=== PATIENT | male | born 1955 | race Caucasian/White ===

== ENCOUNTER 2019-10-13 10:10 | Inpatient (IN) | payer MEDICARE ==
[~2019-10-13] VITALS: Ht 177.8 cm; Wt 89.0 kg
[2019-10-13 11:01] LABS: Basophils # (auto) 0 10 ^3/uL (0-0.2); Basophils % (auto) 0.9 % (0.0-2.0); Eosinophils # (auto) 0.1 10 ^3/uL (0-0.8); Eosinophils % (auto) 1.9 % (0.0-7.0); Lymphocytes # (auto) 1.4 10 ^3/uL (0.4-5.4); Lymphocytes % (auto) 36.2 % (10.0-50.0); Mean Corpuscular Hgb Conc. 34.2 g/dL (32.0-36.0); Mean Corpuscular Volume 99.6 fL (80.0-100.0); Monocytes # (auto) 0.3 10 ^3/uL (0-1.3); Monocytes % (auto) 7.6 % (0.0-12.0); Neutrophils # (auto) 2.1 10 ^3/uL (1.6-8.6); Neutrophils % (auto) 53.4 % (37.0-80.0); Platelet Count (auto) 142 10^3/uL (140-450); Red Blood Cells 4.42 10^6/uL (4.5-5.90); Red Cell Distribution Width 13.3 % (11.8-14.3)
[2019-10-13 11:15] LABS: INR 1.03 (0.9-1.15); Partial Thromboplastin Time 26.8 sec (23.64-32.05)
[2019-10-13 11:20] LABS: Urine Bacteria NONE SEEN /hpf (None Seen); Urine Blood Negative /uL (Negative); Urine Mucus FEW (None Seen); Urine Specific Gravity 1.023 (1.001-1.035); Urine WBC 1 /hpf (0 - 3)
[2019-10-13 11:20] LABS: Albumin 3.6 g/dL (3.4-5.0); Anion Gap 3 (5-15); Blood Urea Nitrogen 22 mg/dL (7-18); Calcium 8.4 mg/dL (8.5-10.1); Carbon Dioxide 24 mmol/L (21-32); Chloride 113 mmol/L (98-107); Glucose 111 mg/dL (74-106); Potassium 3.9 mmol/L (3.5-5.1); Sodium 140 mmol/L (136-145)
[2019-10-13 11:26] LABS: Alanine Aminotransferase 45 U/L (16-61); Alkaline Phosphatase 50 U/L (45-117); Aspartate Aminotransferase 20 U/L (15-37); BUN/Creatinine Ratio 23.7; Bilirubin, Total 0.8 mg/dL (0.2-1.0); GFR African American 105 mL/min; GFR Non-African American 86 mL/min; Total Protein 7.1 g/dL (6.4-8.2)
[2019-10-13] MEDS ORDERED: NITROGLYCERIN 0.4 MG SL TAB SL PRN ×2 (13:30)
[2019-10-13] MEDS ORDERED: ONDANSETRON HCL 4 MG/2 ML VIAL IV PRN ×2 (13:30)
[2019-10-13] MEDS ORDERED: HYDROcodone-ACET 5/325MG TAB PO PRN (13:30)
[2019-10-13] MEDS ORDERED: DOCUSATE SOD 100 MG CAP PO PRN (13:30)
[2019-10-13] MEDS ORDERED: LORazepam 0.5 MG TAB PO PRN ×2 (13:30)
[2019-10-13] MEDS ORDERED: MORPHINE SULF INJ 2 MG/ML SYRINGE 1ML IV PRN ×2 (13:30)
[2019-10-13] MEDS ORDERED: ALUM & MAG HYDROX-SIMETH LIQ(MAALOX) 30 ML PO PRN (13:30)
[2019-10-13] MEDS ORDERED: cefTRIAXone 1GM/50ML D5W 50 ML IV ONE (13:45)
[2019-10-13] MEDS ORDERED: FUROSEMIDE 20 MG/2 ML VIAL IV ONE (13:45)
[2019-10-13] MEDS ORDERED: CALCIUM W/VIT D (600MG/400IU) TAB PO ONE (13:45)
[2019-10-13] MEDS ORDERED: hydrALAZINE HCL 20 MG/ML VL IV PRN ×2 (13:45→20:30)
[2019-10-13] MEDS: metroNIDAZOLE 500MG/100ML 100 ML IV SCH ×2 (14:00→21:35)
[2019-10-13] MEDS ORDERED: AMLO10TA13 PO (14:42)
[2019-10-13] MEDS ORDERED: ATO40T PO (14:42)
[2019-10-13] MEDS ORDERED: CYAN100088 PO (14:42)
[2019-10-13] MEDS ORDERED: ASPI-498 PO (14:42)
[2019-10-13] MEDS ORDERED: CARV6.2551 PO (14:42)
--- NOTE | 2019-10-13 15:07 | NUR ---
SWALLOW EVALUATED IN EMERGENCY DEPT. PATIENT HAS NATURAL TEETH UPPER AND LOWER. PATIENT HAS SEVERE WORD FINDING ISSUES DUE TO HX OF CVA. ABLE TO FOLLOW COMMANDS. PATIENT ABLE TO TOLERATE MECHANICAL SOFT TRIAL WITH THIN LIQUIDS WITH NO OVERT SIGNS OR SYMPTOMS OF ASPIRATION. NURSING NOTIFIED.
--- NOTE | 2019-10-13 18:15 | NUR ---
Report Received Report received from GLASSINE MACHINE TENDER.
[2019-10-13] MEDS: FUROSEMIDE 20 MG/2 ML VIAL IV SCH (18:26)
[2019-10-13] MEDS: CALCIUM W/VIT D (600MG/400IU) TAB PO SCH (18:27)
--- NOTE | 2019-10-13 18:35 | NUR ---
Patient Arrived Patient arrived to unit. Patient is AOx2, respirations even and unlabored on room air. No signs of distress at this time, safety precautions in place, with bed alarm done.
--- NOTE | 2019-10-13 19:15 | NUR ---
Closing Note Report given to CYNTHIA KATHLEEN.
--- NOTE | 2019-10-13 19:46 | NUR ---
Opening Shift Note Received report and assumed care of patient. Patient is awake and alert. Patient has expressive aphasia. No signs or symptoms of distress noted, patient currently denies pain. Instructed patient on plan of care and to call for assistance as needed. Will continue to monitor.
[2019-10-13] MEDS: SODIUM CHLORIDE 0.9% 1,000 ML IV SCH (20:23)
[2019-10-13] MEDS ORDERED: LORazepam 2MG/ML-1ML VIAL IV PRN (20:30)
[2019-10-13] MEDS ORDERED: ACETAMINOPHEN 325 MG TAB PO PRN (20:30)
[2019-10-13 21:06] LABS: Urine Bacteria NONE SEEN /hpf (None Seen); Urine Blood Negative /uL (Negative); Urine Mucus FEW (None Seen); Urine Specific Gravity 1.005 (1.001-1.035); Urine WBC <1 /hpf (0 - 3)
[2019-10-13 21:20] LABS: Cholesterol 111 mg/dL (< 200)
[2019-10-13 21:21] LABS: Amphetamine Screen, Urine NEGATIVE (NEGATIVE); Barbiturate Scree,Urine NEGATIVE (NEGATIVE); Benzodiazephine Screen, Urine NEGATIVE (NEGATIVE); Cannabinoid Screen, Urine NEGATIVE (NEGATIVE); Cocaine Screen, Urine NEGATIVE (NEGATIVE); Opiate Scree,Urine NEGATIVE (NEGATIVE); Phencyclidine Screen, Urine NEGATIVE (NEGATIVE)
[2019-10-13 21:24] LABS: HDL Cholesterol 45 mg/dL (40-59); LDL Cholesterol 60 mg/dL (< 100); Triglycerides 91 mg/dL (< 150)
[2019-10-13] MEDS: ATORVASTATIN 20 MG TAB PO SCH (21:36)
[2019-10-13 23:55] VITALS: BP 114/64
[2019-10-14 05:34] VITALS: BP 103/71
[2019-10-14] MEDS: metroNIDAZOLE 500MG/100ML 100 ML IV SCH (06:00)
[2019-10-14] MEDS: SODIUM CHLORIDE 0.9% 1,000 ML IV SCH (06:00)
[2019-10-14] MEDS: FUROSEMIDE 20 MG/2 ML VIAL IV SCH ×2 (06:01→17:35)
[2019-10-14 06:27] LABS: Basophils # (auto) 0 10 ^3/uL (0-0.2); Basophils % (auto) 0.4 % (0.0-2.0); Eosinophils # (auto) 0.1 10 ^3/uL (0-0.8); Eosinophils % (auto) 1.9 % (0.0-7.0); Hematocrit 41.6 % (41.0-53.0); Hemoglobin 14.7 g/dL (13.5-17.5); Lymphocytes # (auto) 1.8 10 ^3/uL (0.4-5.4); Lymphocytes % (auto) 35.3 % (10.0-50.0); Mean Corpuscular Hgb Conc. 35.2 g/dL (32.0-36.0); Mean Corpuscular Volume 99.4 fL (80.0-100.0); Monocytes # (auto) 0.4 10 ^3/uL (0-1.3); Monocytes % (auto) 8.3 % (0.0-12.0); Neutrophils # (auto) 2.7 10 ^3/uL (1.6-8.6); Neutrophils % (auto) 54.1 % (37.0-80.0); Nucleated Red Blood Cells % 0.3 %; Platelet Count (auto) 135 10^3/uL (140-450); Red Blood Cells 4.18 10^6/uL (4.5-5.90); Red Cell Distribution Width 13.2 % (11.8-14.3); White Blood Cell 5.1 10^3/uL (4.4-10.8)
[2019-10-14 06:41] LABS: INR 1.01 (0.9-1.15); Partial Thromboplastin Time 27.6 sec (23.64-32.05)
[2019-10-14 06:42] LABS: Potassium 3.8 mmol/L (3.5-5.1)
[2019-10-14 06:56] LABS: Albumin 3.4 g/dL (3.4-5.0); BUN/Creatinine Ratio 22.8; Bilirubin, Total 0.6 mg/dL (0.2-1.0); Calcium 8.4 mg/dL (8.5-10.1); Magnesium 2.4 mg/dL (1.6-2.6); Phosphorus 3.5 mg/dL (2.5-4.90); Total Protein 6.6 g/dL (6.4-8.2)
--- NOTE | 2019-10-14 07:30 | NUR ---
Opening Shift Note Assumed patient care from NOC RN. Patient currently sitting up in bed, no signs of distress at this time. AOx3, bed alarm on for safety. Patient encouraged to call when ambulating to restroom, patient verbalized understanding and demonstrated understanding of call light. Respirations even and unlabored, will continue to monitor.
[2019-10-14 09:00] VITALS: BP 129/84
[2019-10-14] MEDS ORDERED: cefTRIAXone 1GM/50ML D5W 50 ML IV SCH (09:00)
[2019-10-14] MEDS: CLOPIDOGREL BISULFATE 75 MG TAB PO SCH (09:18)
[2019-10-14] MEDS: LISINOPRIL 10 MG TAB PO SCH (09:18)
[2019-10-14] MEDS: ASPirin 81 mg TAB PO SCH (09:19)
[2019-10-14] MEDS: ENOXAPARIN SOD 30 MG/0.3 ML SYRINGE SC SCH (09:19)
[2019-10-14] MEDS: CALCIUM W/VIT D (600MG/400IU) TAB PO SCH ×2 (09:19→17:35)
[2019-10-14] MEDS ORDERED: DOCUSATE SOD 100 MG CAP PO SCH (10:00)
[2019-10-14 12:41] VITALS: BP 127/81
[2019-10-14] MEDS: D5W/SOD CHL 0.45%/KCL 20MEQ 1,000 ML IV SCH (14:55)
[2019-10-14 17:00] VITALS: BP 111/76
--- NOTE | 2019-10-14 17:20 | NUR ---
Orthostatic Vital Signs Supine: 115/71, HR 45 SpO2 98% Standin/75, HR 51, SpO2 98% Standin/84, HR 55, SpO2 99%. Patient tolerated well, no signs of distress at this time. Respirations even and unlabored, denies dizziness at this time.
--- NOTE | 2019-10-14 19:00 | NUR ---
Opening Shift Note Assumed care of patient, awake and alert sitting at the chair. No S/S of distress/SOB or pain. Instructed on POC and to call for assist PRN, will continue to monitor for changes Q1hr and PRN.Seen by Dr. Ferguson.
[2019-10-14] MEDS: ATORVASTATIN 20 MG TAB PO SCH (21:31)
[2019-10-14 22:00] VITALS: BP 106/68
[2019-10-15 05:00] VITALS: BP_SYST 131; BP_SYST 134; BP_SYST 137; BP_DIAS 73; BP_DIAS 74; BP_DIAS 83
[2019-10-15] MEDS: FUROSEMIDE 20 MG/2 ML VIAL IV SCH (05:07)
[2019-10-15] MEDS: D5W/SOD CHL 0.45%/KCL 20MEQ 1,000 ML IV SCH (05:25)
--- NOTE | 2019-10-15 07:32 | NUR ---
Care report given to Yu Grajeda, patient is resting no distress.
[2019-10-15] MEDS: CALCIUM W/VIT D (600MG/400IU) TAB PO SCH (07:53)
--- NOTE | 2019-10-15 07:55 | NUR ---
Opening Note Assumed pt care from NOC RN. Pt is a/ox4 with no s/s of distress or SOB. Pt is currently sitting upright in bed with no complaints at this time. Assessed direct response consultant; strong bilaterally on upper extremities, no deficits noted. Discussed POC with pt; pt verbalized understanding. Safety measures maintained with call light within reach, bed in lowest position and side rails up. Will continue to monitor.
[2019-10-15 08:46] VITALS: BP_SYST 120; BP_SYST 122; BP_DIAS 74; BP_DIAS 81
[2019-10-15 08:47] VITALS: BP 118/81
[2019-10-15] MEDS: CLOPIDOGREL BISULFATE 75 MG TAB PO SCH (08:52)
[2019-10-15] MEDS: ASPirin 81 mg TAB PO SCH (08:52)
[2019-10-15] MEDS: LISINOPRIL 10 MG TAB PO SCH (08:53)
[2019-10-15] MEDS: ENOXAPARIN SOD 30 MG/0.3 ML SYRINGE SC SCH (08:54)
[2019-10-15] MEDS ORDERED: CLOP75TA28 PO (09:27)
--- NOTE | 2019-10-15 09:28 | NUR ---
Ambulation Pt is able to ambulate around the nurses station numerous times without difficulty. Will continue to monitor.
[2019-10-15] MEDS ORDERED: AGG25C PO (10:10)
--- NOTE | 2019-10-15 10:29 | NUR ---
Dr Temple at Bedside MD to see pt. Plans to d/c pt home today. MD stated that she would update pt's son. Will implement and continue to monitor.
[2019-10-15 10:43] VITALS: BP 122/74
[2019-10-15 12:35] VITALS: BP_SYST 121; BP_SYST 124; BP_DIAS 74; BP_DIAS 82
[2019-10-15 12:36] VITALS: BP 121/78
--- NOTE | 2019-10-15 12:42 | NUR ---
Prescription [facility] is unable to fulfill the Rx AGGRENOX today; but will have the RX tomorrow. Will inform patient and pt's family of need to pick remover tomorrow.
--- NOTE | 2019-10-15 13:01 | NUR ---
IV and Tele 75 D/C'ed IV to pt's R FA removed. Catheter was removed fully intact. Site is asymptomatic. Pressure was applied to site for 3 minutes with gauze and then wrapped in coban. Pt instructed to keep dressing on for 30 minutes Tele 75 D/C'ed and sent back to ICU Staff made aware.
--- NOTE | 2019-10-15 14:01 | NUR ---
Pt D/C'ed off Unit Pt d/c'ed off unit via wheelchair. Pt is a/ox4 with no s/s of distress or SOB. Pt took all belongings, education material and all questions were answered. Pt aware of need to flower buncher or picker prescription. IV and tele box were d/c'ed prior to d/c.
[2019-10-15] MEDS ORDERED: ASPIRIN-DIPYRIDAMOLE (25/200MG) CAPSULE PO SCH (22:00)
== END 2019-10-15 14:03 | disposition home or self-care (01) | DRG 66 ==
LOC: ER 10:10 → TELE 10:11 → TELE-WESTW 18:35
PROVIDERS: ADMIT Hospitalist; ATTEND Internal Medicine
DX: I63.9 Cerebral infarction, unspecified (principal); I10 Essential (primary) hypertension; R47.02 Dysphasia; E83.51 Hypocalcemia; F01.50 Vascular dementia, unspecified severity, without behavioral disturbance, psychotic disturbance, mood disturbance, and anxiety; R73.9 Hyperglycemia, unspecified; E86.0 Dehydration; I25.10 Atherosclerotic heart disease of native coronary artery without angina pectoris; I25.2 Old myocardial infarction; Z79.02 Long term (current) use of antithrombotics/antiplatelets; Z79.82 Long term (current) use of aspirin; Z79.899 Other long term (current) drug therapy; Z82.49 Family history of ischemic heart disease and other diseases of the circulatory system; Z95.5 Presence of coronary angioplasty implant and graft; I67.2 Cerebral atherosclerosis; I69.311 Memory deficit following cerebral infarction; I69.320 Aphasia following cerebral infarction
CPT/HCPCS: 36415; 70450; 70545; 70551; 71045; 80053; 80061; 80307; 81001; 83036; 83735; 84100; 84443; 84484; 85025; 85610; 85730; 87040; 87086; 87205; 92610; 93005; 93306; 93886; 97163; G0378; J0696; J3490

== ENCOUNTER 2020-07-30 08:09 | Inpatient (IN) | payer MEDICARE, OTHER ==
[~2020-07-30] VITALS: Ht 177.8 cm; Wt 101.8 kg
[~2020-07-30 08:09] MED LIST: AGG25C PO; AMLO-496 PO; ATO40T PO; CARV6.2551 PO; CYAN100088 PO
[2020-07-30] MEDS ORDERED: SODIUM CHLORIDE 0.9% 1,000 ML IV ONE (08:30)
[2020-07-30] MEDS ORDERED: DOCUSATE SOD 100 MG CAP PO ONE (08:30)
[2020-07-30] MEDS ORDERED: MORPHINE SULF INJ 2 MG/ML SYRINGE 1ML ONE (08:45)
[2020-07-30] MEDS ORDERED: ONDANSETRON HCL 4 MG/2 ML VIAL ONE (08:45)
[2020-07-30 08:49] LABS: Anion Gap 9 (5-15); Blood Urea Nitrogen 22 mg/dL (7-18); Calcium 8.9 mg/dL (8.5-10.1); Carbon Dioxide 22 mmol/L (21-32); Chloride 108 mmol/L (98-107); Glucose 136 mg/dL (74-106); Sodium 139 mmol/L (136-145)
[2020-07-30 08:50] LABS: Basophils # (auto) 0 10 ^3/uL (0-0.2); Basophils % (auto) 0.2 % (0.0-2.0); Eosinophils # (auto) 0 10 ^3/uL (0-0.8); Lymphocytes # (auto) 0.8 10 ^3/uL (0.4-5.4); Monocytes # (auto) 0.5 10 ^3/uL (0-1.3); Neutrophils # (auto) 7.5 10 ^3/uL (1.6-8.6); White Blood Cell 8.8 10^3/uL (4.4-10.8)
[2020-07-30 08:51] LABS: Hematocrit 46.3 % (41.0-53.0); Hemoglobin 16.2 g/dL (13.5-17.5); Lymphocytes % (auto) 9.3 % (10.0-50.0); Mean Corpuscular Hemoglobin 35.4 pg (28.0-32.0); Monocytes % (auto) 5.3 % (0.0-12.0); Neutrophils % (auto) 85.2 % (37.0-80.0); Platelet Count (auto) 127 10^3/uL (140-450); Red Blood Cells 4.59 10^6/uL (4.5-5.90); Red Cell Distribution Width 12.7 % (11.8-14.3)
[2020-07-30 08:55] LABS: Alanine Aminotransferase 43 U/L (16-61); Alkaline Phosphatase 59 U/L (45-117); Aspartate Aminotransferase 22 U/L (15-37); BUN/Creatinine Ratio 14.1; Bilirubin, Total 0.8 mg/dL (0.2-1.0); GFR African American 57 mL/min; GFR Non-African American 47 mL/min; Total Protein 7.4 g/dL (6.4-8.2)
[2020-07-30] MEDS ORDERED: ONDANSETRON HCL 4 MG/2 ML VIAL IV ONE (09:00)
[2020-07-30] MEDS ORDERED: MORPHINE SULF INJ 2 MG/ML SYRINGE 1ML IV ONE (09:00)
[2020-07-30] MEDS ORDERED: cefTRIAXone 1GM/50ML D5W 50 ML IV ONE ×2 (09:15→09:45)
[2020-07-30] MEDS ORDERED: KETOROLAC TROMETH 30 MG/ML 1ML VIAL IV ONE (09:15)
[2020-07-30] MEDS ORDERED: TAMSULOSIN HYDROCHLORIDE 0.4 MG CAP PO ONE (09:15)
[2020-07-30] MEDS ORDERED: MORPHINE SULF INJ 2 MG/ML SYRINGE 1ML IV PRN (09:45)
[2020-07-30] MEDS ORDERED: ACETAMINOPHEN 500 MG TAB PO PRN (09:45)
[2020-07-30] MEDS ORDERED: NITROGLYCERIN 0.4 MG SL TAB SL PRN (09:45)
[2020-07-30] MEDS ORDERED: PROMETHAZINE HCL 25 MG/ML 1ML IV PRN (09:45)
[2020-07-30] MEDS: SODIUM CHLORIDE 0.9% 1,000 ML IV SCH ×2 (09:47→19:45)
[2020-07-30 10:04] LABS: Amylase 65 U/L (25-115); Lipase 91 U/L (73-393)
[2020-07-30] MEDS: FAMOTIDINE 20 MG TAB PO SCH (10:20)
[2020-07-30 10:31] LABS: Urine Bacteria NONE SEEN /hpf (None Seen); Urine Blood Negative /uL (Negative); Urine Specific Gravity 1.012 (1.001-1.035); Urine WBC <1 /hpf (0 - 3)
[2020-07-30 13:00] VITALS: BP 124/78
[2020-07-30] MEDS ORDERED: MANNITOL FTV 25% 12.5 GM/50 ML 50 ML IV ONE (13:30)
[2020-07-30 17:00] VITALS: BP 138/79
[2020-07-30] MEDS: TAMSULOSIN HYDROCHLORIDE 0.4 MG CAP PO SCH (17:17)
[2020-07-30] MEDS: traMADol HCL 50 MG TAB PO PRN (17:17)
[2020-07-30] MEDS ORDERED: POLY33504 PO (17:19)
[2020-07-30 23:14] VITALS: BP 95/61
[2020-07-31] MEDS: SODIUM CHLORIDE 0.9% 1,000 ML IV SCH ×3 (04:35→16:40)
[2020-07-31 05:00] VITALS: BP 118/64
[2020-07-31 08:00] VITALS: BP_SYST 110; BP_SYST 130; BP_DIAS 26; BP_DIAS 71
[2020-07-31 09:05] VITALS: BP 130/76
[2020-07-31] MEDS: cefTRIAXone 1GM/50ML D5W 50 ML IV SCH (10:25)
[2020-07-31] MEDS: FAMOTIDINE 20 MG TAB PO SCH (10:26)
[2020-07-31] MEDS: traMADol HCL 50 MG TAB PO PRN ×2 (10:26→16:38)
[2020-07-31] MEDS: LACTULOSE 20Gm/30ML SOLN PO PRN (10:27)
[2020-07-31] MEDS: MORPHINE SULF INJ 2 MG/ML SYRINGE 1ML IV PRN (12:39)
[2020-07-31 13:00] VITALS: BP 137/83
[2020-07-31 13:56] LABS: Basophils # (auto) 0 10 ^3/uL (0-0.2); Eosinophils # (auto) 0 10 ^3/uL (0-0.8); Eosinophils % (auto) 0.1 % (0.0-7.0)
[2020-07-31 13:57] LABS: Basophils % (auto) 0.1 % (0.0-2.0); Hemoglobin 14.5 g/dL (13.5-17.5); Lymphocytes # (auto) 0.7 10 ^3/uL (0.4-5.4); Lymphocytes % (auto) 8.5 % (10.0-50.0); Mean Corpuscular Hemoglobin 34.9 pg (28.0-32.0); Mean Corpuscular Hgb Conc. 34.6 g/dL (32.0-36.0); Mean Corpuscular Volume 101.1 fL (80.0-100.0); Monocytes # (auto) 0.5 10 ^3/uL (0-1.3); Monocytes % (auto) 6.3 % (0.0-12.0); Neutrophils # (auto) 7.4 10 ^3/uL (1.6-8.6); Platelet Count (auto) 106 10^3/uL (140-450); Red Blood Cells 4.16 10^6/uL (4.5-5.90); Red Cell Distribution Width 12.9 % (11.8-14.3); White Blood Cell 8.7 10^3/uL (4.4-10.8)
[2020-07-31 14:14] LABS: BUN/Creatinine Ratio 13.3; Potassium 3.8 mmol/L (3.5-5.1)
[2020-07-31] MEDS ORDERED: SODIUM CHLORIDE 0.9% 1,000 ML IV ONE (15:45)
[2020-07-31] MEDS: TAMSULOSIN HYDROCHLORIDE 0.4 MG CAP PO SCH (17:07)
[2020-07-31 17:18] VITALS: BP 158/88
[2020-07-31 22:00] VITALS: BP 130/76
[2020-07-31] MEDS: ASPIRIN-DIPYRIDAMOLE (25/200MG) CAPSULE PO SCH (22:20)
[2020-07-31] MEDS: CARVEDILOL 3.125 MG TAB PO SCH (22:21)
[2020-07-31] MEDS: TEMAZEPAM 15 MG CAP PO PRN (22:22)
[2020-08-01] MEDS: SODIUM CHLORIDE 0.9% 1,000 ML IV SCH ×4 (00:17→23:52)
[2020-08-01] MEDS: traMADol HCL 50 MG TAB PO PRN ×3 (02:49→14:31)
[2020-08-01 05:00] VITALS: BP 135/83
[2020-08-01] MEDS: MORPHINE SULF INJ 2 MG/ML SYRINGE 1ML IV PRN ×4 (07:04→21:37)
[2020-08-01 08:17] LABS: Calcium 7.6 mg/dL (8.5-10.1); Potassium 3.6 mmol/L (3.5-5.1)
[2020-08-01 08:21] LABS: BUN/Creatinine Ratio 14.4
[2020-08-01 09:11] VITALS: BP 138/79
[2020-08-01] MEDS: POLYETHYLENE GLYCOL 17 GM PWDR PO SCH (09:19)
[2020-08-01] MEDS: cefTRIAXone 1GM/50ML D5W 50 ML IV SCH (09:19)
[2020-08-01] MEDS: ASPIRIN-DIPYRIDAMOLE (25/200MG) CAPSULE PO SCH ×2 (09:19→21:35)
[2020-08-01] MEDS: ATORVASTATIN 20 MG TAB PO SCH (09:20)
[2020-08-01] MEDS: FAMOTIDINE 20 MG TAB PO SCH ×2 (09:20→21:36)
[2020-08-01] MEDS: CYANOCOBALAMIN 500 MCG TAB PO SCH (09:20)
[2020-08-01] MEDS: CARVEDILOL 3.125 MG TAB PO SCH ×2 (09:21→21:36)
[2020-08-01] MEDS ORDERED: PATIENTS OWN MEDICATION (Amlodipine Besylate 1 TAB) PO SCH (10:00)
[2020-08-01 13:00] VITALS: BP 116/71
[2020-08-01] MEDS: LACTULOSE 20Gm/30ML SOLN PO PRN (16:26)
[2020-08-01 17:28] VITALS: BP 145/87
[2020-08-01] MEDS: TAMSULOSIN HYDROCHLORIDE 0.4 MG CAP PO SCH (17:47)
[2020-08-01 22:00] VITALS: BP 149/85
[2020-08-02] MEDS: traMADol HCL 50 MG TAB PO PRN ×2 (01:13→18:26)
[2020-08-02] MEDS: LACTULOSE 20Gm/30ML SOLN PO PRN ×3 (04:33→21:53)
[2020-08-02] MEDS: MORPHINE SULF INJ 2 MG/ML SYRINGE 1ML IV PRN ×3 (04:33→21:48)
[2020-08-02 05:00] VITALS: BP 147/87
[2020-08-02 08:02] LABS: Potassium 3.7 mmol/L (3.5-5.1)
[2020-08-02 08:05] LABS: BUN/Creatinine Ratio 15.3; Calcium 7.4 mg/dL (8.5-10.1)
[2020-08-02 08:27] VITALS: BP 123/75
[2020-08-02] MEDS ORDERED: MANNITOL FTV 25% 12.5 GM/50 ML 50 ML IV ONE (08:45)
[2020-08-02] MEDS: SODIUM CHLORIDE 0.9% 1,000 ML IV SCH ×3 (09:27→23:45)
[2020-08-02] MEDS: cefTRIAXone 1GM/50ML D5W 50 ML IV SCH (09:28)
[2020-08-02] MEDS: ASPIRIN-DIPYRIDAMOLE (25/200MG) CAPSULE PO SCH ×2 (09:28→21:47)
[2020-08-02] MEDS: CARVEDILOL 3.125 MG TAB PO SCH ×2 (09:29→21:48)
[2020-08-02] MEDS: POLYETHYLENE GLYCOL 17 GM PWDR PO SCH (09:30)
[2020-08-02] MEDS: FAMOTIDINE 20 MG TAB PO SCH ×2 (09:30→21:48)
[2020-08-02] MEDS: CYANOCOBALAMIN 500 MCG TAB PO SCH (09:30)
[2020-08-02] MEDS: ATORVASTATIN 20 MG TAB PO SCH (09:30)
[2020-08-02 13:00] VITALS: BP 121/76
[2020-08-02 16:40] VITALS: BP 133/82
[2020-08-02] MEDS: TAMSULOSIN HYDROCHLORIDE 0.4 MG CAP PO SCH (17:16)
[2020-08-02 22:00] VITALS: BP 144/83
[2020-08-03] MEDS: traMADol HCL 50 MG TAB PO PRN ×2 (00:38→21:35)
[2020-08-03] MEDS: MORPHINE SULF INJ 2 MG/ML SYRINGE 1ML IV PRN (04:15)
[2020-08-03 05:00] VITALS: BP 138/82
[2020-08-03 07:36] LABS: Potassium 3.6 mmol/L (3.5-5.1)
[2020-08-03] MEDS: SODIUM CHLORIDE 0.9% 1,000 ML IV SCH ×2 (07:45→18:06)
[2020-08-03 07:46] LABS: BUN/Creatinine Ratio 12.9; Calcium 7.6 mg/dL (8.5-10.1)
[2020-08-03] MEDS ORDERED: METOCLOPRAMIDE HCL 5MG/ml INJ 2ml VIAL IV PRN (08:00)
[2020-08-03 09:05] VITALS: BP 145/89
[2020-08-03] MEDS: CYANOCOBALAMIN 500 MCG TAB PO SCH (10:00)
[2020-08-03] MEDS: FAMOTIDINE 20 MG TAB PO SCH ×2 (10:00→21:26)
[2020-08-03] MEDS: ATORVASTATIN 20 MG TAB PO SCH (10:00)
[2020-08-03] MEDS: CARVEDILOL 3.125 MG TAB PO SCH ×2 (10:01→21:25)
[2020-08-03] MEDS: cefTRIAXone 1GM/50ML D5W 50 ML IV SCH (10:02)
[2020-08-03] MEDS: POLYETHYLENE GLYCOL 17 GM PWDR PO SCH (10:02)
[2020-08-03 13:08] VITALS: BP 148/87
[2020-08-03 16:38] VITALS: BP 160/94
[2020-08-03] MEDS: TAMSULOSIN HYDROCHLORIDE 0.4 MG CAP PO SCH (18:04)
[2020-08-03 22:00] VITALS: BP 148/83
[2020-08-04] VITALS (7 sets, daily range): BP systolic 132–158; BP diastolic 75–102
[2020-08-04] MEDS: SODIUM CHLORIDE 0.9% 1,000 ML IV SCH ×4 (00:01→23:45)
[2020-08-04] MEDS: MORPHINE SULF INJ 2 MG/ML SYRINGE 1ML IV PRN (01:02)
[2020-08-04 06:30] LABS: Basophils # (auto) 0 10 ^3/uL (0-0.2); Eosinophils # (auto) 0.1 10 ^3/uL (0-0.8); Hemoglobin 13.4 g/dL (13.5-17.5); Neutrophils # (auto) 6.5 10 ^3/uL (1.6-8.6); Red Cell Distribution Width 12.7 % (11.8-14.3); White Blood Cell 8.1 10^3/uL (4.4-10.8)
[2020-08-04 06:34] LABS: Basophils % (auto) 0.1 % (0.0-2.0); Eosinophils % (auto) 0.7 % (0.0-7.0); Hematocrit 37.7 % (41.0-53.0); Lymphocytes # (auto) 0.7 10 ^3/uL (0.4-5.4); Lymphocytes % (auto) 9.2 % (10.0-50.0); Mean Corpuscular Hemoglobin 35.6 pg (28.0-32.0); Mean Corpuscular Hgb Conc. 35.5 g/dL (32.0-36.0); Mean Corpuscular Volume 100.4 fL (80.0-100.0); Monocytes # (auto) 0.7 10 ^3/uL (0-1.3); Monocytes % (auto) 9.1 % (0.0-12.0); Neutrophils % (auto) 80.9 % (37.0-80.0); Platelet Count (auto) 137 10^3/uL (140-450); Red Blood Cells 3.75 10^6/uL (4.5-5.90)
[2020-08-04 06:46] LABS: INR 1.07 (0.9-1.15)
[2020-08-04 06:47] LABS: BUN/Creatinine Ratio 15.1; Calcium 7.6 mg/dL (8.5-10.1); Magnesium 2.5 mg/dL (1.6-2.6); Potassium 3.6 mmol/L (3.5-5.1)
[2020-08-04] MEDS ORDERED: ADENOSINE 86 MG in GIVE UN-DILUTED 0 ML IV ONE (08:15)
[2020-08-04] MEDS: cefTRIAXone 1GM/50ML D5W 50 ML IV SCH (09:13)
[2020-08-04] MEDS: CARVEDILOL 3.125 MG TAB PO SCH ×2 (09:15→22:00)
[2020-08-04] MEDS: ATORVASTATIN 20 MG TAB PO SCH (09:16)
[2020-08-04] MEDS: CYANOCOBALAMIN 500 MCG TAB PO SCH (09:16)
[2020-08-04] MEDS: POLYETHYLENE GLYCOL 17 GM PWDR PO SCH (09:16)
[2020-08-04] MEDS: FAMOTIDINE 20 MG TAB PO SCH ×2 (09:16→22:00)
[2020-08-04] MEDS ORDERED: CARVEDILOL 3.125 MG TAB PO ONE (13:45)
[2020-08-04] MEDS: LACTULOSE 20Gm/30ML SOLN PO PRN (14:17)
[2020-08-04] MEDS: traMADol HCL 50 MG TAB PO PRN (18:07)
[2020-08-04] MEDS: TAMSULOSIN HYDROCHLORIDE 0.4 MG CAP PO SCH (18:07)
[2020-08-05] MEDS: traMADol HCL 50 MG TAB PO PRN (00:50)
[2020-08-05] MEDS: TEMAZEPAM 15 MG CAP PO PRN ×2 (00:50→22:17)
[2020-08-05 04:57] VITALS: BP 147/85
[2020-08-05 07:01] LABS: Calcium 7.7 mg/dL (8.5-10.1); Potassium 3.5 mmol/L (3.5-5.1)
[2020-08-05 07:03] LABS: BUN/Creatinine Ratio 17.3
[2020-08-05] MEDS: CARVEDILOL 3.125 MG TAB PO SCH ×2 (09:37→22:17)
[2020-08-05] MEDS: FAMOTIDINE 20 MG TAB PO SCH ×2 (09:37→22:17)
[2020-08-05] MEDS: cefTRIAXone 1GM/50ML D5W 50 ML IV SCH (09:37)
[2020-08-05] MEDS: ATORVASTATIN 20 MG TAB PO SCH (09:37)
[2020-08-05] MEDS: CYANOCOBALAMIN 500 MCG TAB PO SCH (09:38)
[2020-08-05] MEDS: POLYETHYLENE GLYCOL 17 GM PWDR PO SCH (09:38)
[2020-08-05] MEDS: SODIUM CHLORIDE 0.9% 1,000 ML IV SCH ×2 (10:30→15:45)
[2020-08-05] MEDS ORDERED: ETOMIDATE (2MG/ML) 20ML VIAL IV ONE (11:33)
[2020-08-05] MEDS ORDERED: KETAMINE 50mg/ML 10ml Vial (500mg/10ml) IV ONE (11:35)
[2020-08-05] MEDS ORDERED: ceFAZolin 1GM/50ML 50 ML IV ONE (12:14)
[2020-08-05] MEDS ORDERED: MEPERIDINE HCL (25 MG/ML) 1ML VIAL ONE (12:38)
[2020-08-05] MEDS ORDERED: MIDAZOLAM HCL 1MG/1ML-2 ML VIAL ONE (12:38)
[2020-08-05] MEDS ORDERED: fentaNYL CITRATE 100 MCG/2 ML VL ONE (12:38)
[2020-08-05 12:48] VITALS: BP 158/92
[2020-08-05] MEDS ORDERED: DexAMETHasone SOD PHOS 10MG/1ML VIAL INJ ONE (13:07)
[2020-08-05] MEDS ORDERED: PROPOFOL 10 MG/ML 20 ML IV ONE (13:07)
[2020-08-05] MEDS ORDERED: IOHEXOL 300 MG/ML 100ML BOTTLE IJ ONE (13:30)
[2020-08-05 15:12] VITALS: BP 126/91
[2020-08-05 17:00] VITALS: BP 146/83
[2020-08-05] MEDS: TAMSULOSIN HYDROCHLORIDE 0.4 MG CAP PO SCH (18:43)
[2020-08-05] MEDS: MORPHINE SULF INJ 2 MG/ML SYRINGE 1ML IV PRN (21:34)
[2020-08-05 22:00] VITALS: BP 146/75
[2020-08-06] MEDS: SODIUM CHLORIDE 0.9% 1,000 ML IV SCH ×3 (03:40→15:49)
[2020-08-06 05:00] VITALS: BP 148/86
[2020-08-06 07:07] LABS: Potassium 4.4 mmol/L (3.5-5.1)
[2020-08-06 07:14] LABS: BUN/Creatinine Ratio 21.3; Calcium 8.1 mg/dL (8.5-10.1)
[2020-08-06 08:50] VITALS: BP 146/90
[2020-08-06] MEDS: cefTRIAXone 1GM/50ML D5W 50 ML IV SCH (09:10)
[2020-08-06] MEDS: CYANOCOBALAMIN 500 MCG TAB PO SCH (09:12)
[2020-08-06] MEDS: CARVEDILOL 3.125 MG TAB PO SCH (09:13)
[2020-08-06] MEDS: FAMOTIDINE 20 MG TAB PO SCH (09:13)
[2020-08-06] MEDS: ATORVASTATIN 20 MG TAB PO SCH (09:14)
[2020-08-06] MEDS: POLYETHYLENE GLYCOL 17 GM PWDR PO SCH (09:14)
[2020-08-06 12:39] VITALS: BP 120/75
[2020-08-06 15:53] VITALS: BP 132/78
[2020-08-06 16:40] VITALS: BP 135/74
[2020-08-06] MEDS: TAMSULOSIN HYDROCHLORIDE 0.4 MG CAP PO SCH (17:30)
== END 2020-08-06 18:18 | disposition home or self-care (01) | DRG 661 ==
LOC: ER 08:09 → TELE 09:34 → TELE-WESTW 11:24
PROVIDERS: ADMIT Internal Medicine; ATTEND Internal Medicine Geriatric Medicine
PROC: 0T778DZ Dilation of Left Ureter with Intraluminal Device, Via Natural or Artificial Opening Endoscopic (ICD-10-PCS; 2020-08-05)
PROC: BT1F1ZZ Fluoroscopy of Left Kidney, Ureter and Bladder using Low Osmolar Contrast (ICD-10-PCS; principal; 2020-08-05 12:51)
DX: N13.2 Hydronephrosis with renal and ureteral calculous obstruction (principal); N17.9 Acute kidney failure, unspecified; K59.00 Constipation, unspecified; I69.320 Aphasia following cerebral infarction; R73.9 Hyperglycemia, unspecified; I25.10 Atherosclerotic heart disease of native coronary artery without angina pectoris; I10 Essential (primary) hypertension; Z68.30 Body mass index [BMI] 30.0-30.9, adult; F03.90 Unspecified dementia, unspecified severity, without behavioral disturbance, psychotic disturbance, mood disturbance, and anxiety; Z87.442 Personal history of urinary calculi; Z90.49 Acquired absence of other specified parts of digestive tract; Z95.5 Presence of coronary angioplasty implant and graft; Z79.899 Other long term (current) drug therapy; I25.2 Old myocardial infarction; E66.01 Morbid (severe) obesity due to excess calories; Z20.822 Contact with and (suspected) exposure to COVID-19
CPT/HCPCS: 36415; 71045; 74018; 74176; 76000; 78452; 80048; 80053; 81001; 82150; 83690; 83735; 84484; 85025; 85610; 85730; 86850; 86900; 86901; 87086; 87426; 93005; 93017; 96361; 96365; 96375; G0378; J0153; J0690; J0696; J1100; J1885; J2250; J2405; J2704